=== PATIENT | female | born 1960 | race Caucasian/White ===

== ENCOUNTER 2016-05-30 05:51 | Day surgery (SDC) | payer OTHER ==
[~2016-05-30] VITALS: Ht 165.1 cm; Wt 82.8 kg
[2016-05-30] VITALS (8 sets, daily range): BP systolic 92–115; BP diastolic 44–62; PULSE 62–72; RESP 16–22; O2SAT 91–98
[2016-05-30] MEDS: Lactated Ringer's 1,000 ML IV SCH ×2 (05:50→07:28)
[~2016-05-30 05:51] MED LIST: BENZ56.73 TP; BUPR75TA10 PO; BUSP5TAB3 PO; FLUT9.9S NS; TERB250T11 PO
[2016-05-30] MEDS ORDERED: Bupivacaine Liposome 1.3% 20 mL Inj ONE (07:16)
--- NOTE | 2016-05-30 07:22 | PCM.HPANE ---
Patient Data Surgeon Admitting Provider: Attending Provider:Magaly Dawson MD Primary Care Physician:Marquita Augustin MD Other Provider:Megan Abebeingham Anesthesia Reason for Visit Anal Warts, Anal Skin Tag Ht/WT & BMI Height (Feet): 5 Height (Inches): 5.00 Weight (Kilograms): 82.8 Body Mass Index 30.00 Allergies Coded Allergies: amoxicillin (Verified Allergy, Severe, HIVES, 03/10/15) shellfish derived (Unverified Allergy, Severe, HIVES, 05/24/16) Uncoded Allergies: PEANUTS (Allergy, Severe, HIVES, 05/24/16) Past Anesthesia History Anesthesia History: Positive for:: Anesthesia Reactions (per history-pt "took long time to wake up"), Denies:: Fam Anesthesia Reaction, Malignant Hyperthermia Diabetes History Hx Diabetes?: No MRSA MRSA: No Medications Home Meds Incl Beta Marian: No Reported Medications Bupropion 75 Mg [id number] Mg PO BID Ref 0 05/24/16 Buspirone 5 Mg Tablet5 Mg PO BID Ref 0 05/24/16 Terbinafine 250 Mg [id number] Mg PO DAILY 02/08/15 Fluticasone Propionate (Flonase Allergy Relief)50 Mcg/Actuation [place].susp1-2 Sprays NS DAILY 02/08/15 Benzoyl Peroxide 56.7 Gm Gel..gram.1 Applic TP BID 02/08/15 Discontinued Reported Medications Bupropion ER (Wellbutrin XL)150 Mg Tab.er.[id number] Mg PO DAILY Ref 0 02/08/15 History History of ENT Problems?: Yes HEENT History: Positive for:: Sinus Problem (hx of seasonal allergies) Denies:: Dysphagia Other HEENT Pertinent History: S/P EXC SALIVARY GLAND Hx of Heart Problems?: Yes Cardiovascular History: Positive for:: Hypertension (hyperlipidemia per H+P-, no meds listed on med rec) Denies:: AICD Heart Murmur Pacemaker Valvular Heart Disease Hx of Respiratory Problem?: Yes Respiratory History: Positive for:: Use of C-PAP Machine (SNORES) Hx Neurologic Problems?: No Neurological History: Denies:: CVA Hx of GI Problems?: Yes Gastrointestinal History: Denies:: Gastroesphageal Reflux Rectal Bleeding (HX HEMORRHOIDS,CONDYLOMA ACUMINATA) Other GI Pertinent History: ANAL WARTS/ANAL SKIN TAG=CURRENT PROBLEM Hx of Problems?: No Female Hx: Denies:: Currently (post menses x 12 yrs) Skin History: Positive for:: History Skin Disorders? (HX OF ONYCHOMYCOSIS) Denies:: Pressure Ulcers Hx Musculoskeletal Problems?: Yes Musculoskeletal History: Positive for:: Musculoskeletal Trauma (hx of right shoulder injury 02/2015) Denies:: Back Injury (C/OF LOWER BACK PAIN) Hx of Psycho/Social Problems?: Yes Psycho Social History: Positive for:: Hx Depression Hx Surgeries?: Yes (salivary gland excision) Hx Any Other Health Problems?: Yes Other History: Denies:: Cancer Endocrine Disease Hospitalization Thyroid Disease History Blood Transfusions: Denies:: Blood Transfusions Hx Diabetes: No Hx Alcohol Use: YesHx Substance Use: Yes (occ marijuana) Smoking Status: Former Smoker Have You Smoked inLast 12 mo: Yes (TRYING TO QUIT) Stop/Bang Treated for Sleep Apnea?: No Do You Have a CPAP Machine?: No S-Snoring: Do You Snore Loudly: Yes T-Tired: feel tired, fatigued: No O-Obsered: Observed not breath: No P-Blood Pressure: treated: No B- Body Mass Index > 35 kg/m2: No A- Age over 50: Yes N- Neck Large Circumference: Yes G- Gender Male: No FIONA Total Score: 3 FIONA Risk Assessment: Low Risk, <3 Yes Risk Assessment Category Category 1A: Patient has history of documented sleep apnea, and HAS NOT received any narcotic, sedative or anesthesia administration during this stay. Category 1B: Patient has history of documented sleep apnea, and HAS received any narcotic , sedative or anesthesia administration during this stay Category 2: Patient has SUSPECTED Obstructive Sleep Apnea, and HAS received any narcotic , sedative or anesthesia administration during this stay. Category 3: Patient has SUSPECTED Obstructive Sleep Apnea and HAS NOT received narcotic, sedative or anesthesia administration during this stay. Category 4: Outpatient in Procedural Areas with known sleep apnea or who screen positive for High Risk via the STOP/BANG questionnaire. Exam Exam Vital Signs Vital Signs Date Time Temp Pulse Resp B/P Pulse Ox O2 Delivery O2 Flow Rate FiO2 05/30/16 06:11 36.3 64 16 113/62 98 Room Air General Appearance: Oriented X3 HEENT/AIRWAY: MP 2 Lungs: Normal Air Movement Heart: Regular Rate/Rhythm Meds/Labs/Diagnostics Admission Meds Current Medications Lactated Ringer's (Lr) 1,000 ml @ 120 mls/hr [id number] IV Last administered on t 05:50; Start 05/30/16 at 05:00; Stop 05/30/16 at 13:19 Plan Impression Patient chart reviewed, patient interviewed and anesthestic plan with risks, benefits, and alternatives discussed, and informed consent obtained. NPO Status: 05/29 at 2100 ASA Physical Status: ASA2 Mod Systemic Disease Anesthetic Plan: GA, MAC Bene/Risks/Altern/Consents: Yes HP Complete Prior to Induction: Yes Manish Guzmán MD May 30, 2016 07:22
[2016-05-30] MEDS ORDERED: Bupivacaine 0.5%/EPI 50 mL Inj INFILTRATE ONE (07:34)
[2016-05-30] MEDS ORDERED: Bupivacaine Liposome 1.3% 20 mL Inj INFILTRATE ONE (07:34)
[2016-05-30] MEDS ORDERED: Lactated Ringer's 1,000 ML IV SCH (07:54)
[2016-05-30] MEDS ORDERED: Lactated Ringer's 500 ML IV PRN (07:54)
[2016-05-30] MEDS ORDERED: fentaNYL-PF 50 mCg/mL 2 mL Inj IVPUSH PRN (07:55)
[2016-05-30] MEDS ORDERED: Ondansetron 2 mg/mL 2 mL Inj IVPUSH PRN (07:55)
[2016-05-30] MEDS ORDERED: Dexamethasone 4 mg/mL Inj IVPUSH PRN (07:55)
[2016-05-30] MEDS ORDERED: HYDROmorphone 1 mg/mL Inj IVPUSH PRN (07:55)
[2016-05-30] MEDS ORDERED: Phenylephrine 10,000 mCg/mL Inj IVPUSH PRN (07:55)
[2016-05-30] MEDS ORDERED: MetoCLOpramide 5 mg/mL 2 mL Inj IVPUSH PRN (07:55)
[2016-05-30] MEDS ORDERED: EPHEDrine Sulfate 50 mg/mL Inj IVPUSH PRN (07:55)
[2016-05-30] MEDS ORDERED: oxyCODONE-Acetamin 5-325 mg Tablet PO PRN (08:20)
--- NOTE | 2016-05-30 08:24 | PCM.SURGOP ---
Surgical Operative Report Date of Service: May 30, 2016 Pre Operative Diagnosis External hemorrhoid; perianal warts Post Operative Diagnosis External hemorrhoid; perianal warts Procedure: External hemorrhoidectomy; excision of perianal warts 5 Surgeon and Train Director: Surgeon: Magaly Dawson M.D. Assistants: EVA Herman Indication for Procedure This is a 56-year-old woman who presented with a large anterior external hemorrhoidal skin tag causing difficulty with sanitation, as well as several perianal warts. She desired excision. Findings: External hemorrhoidal skin tag 3 x 2 cm. Perianal warts ranging from 5 mm to 1.5 cm in size. Procedure Details The patient was brought to the operating room and placed in supine position. General anesthesiawas smoothly induced. A warming blanket was placed. A pause was performed to confirm the correct patient, procedure, site, and side. A rectal examination under anesthesia was performed. She had small circumferential internal hemorrhoids, but no masses. The anterior external hemorrhoidal skin tag was grasped and position of the anal sphincter confirmed. The base was injected with 0.5% Marcaine for postoperative analgesia.. It was excised with a knife and the defect was closed with running 3-0 chromic stitch. The perianal region was inspected and she was found to have sized perianal warts, the largest 1.5 cm in size, the smallest 0.5 cm in size. These were removed with electrocautery and sent to pathology as a single specimen. The largest one is at the left anterolateral position, and due to its size, the defect was closed with an interrupted 3-0 chromic stitch.. 20 mL of liposomal bupivacaine was injected into the perianal region and near the location of sutures for postoperative analgesia. Hemostasis was obtained. A dressing was placed, the patient was awakened from anesthesia, and was taken to the postoperative care unit in good condition. Complications There were no periprocedural complications identified. Surgical Specimen Removed: Yes Specimen sent to Pathology: Yes Surgical Specimen description: Anterior external hemorrhoid; perianal warts 5 Anesthetic Plan: GA, MAC Grafts, Implants: None Output, Estimated Blood Loss: 2 (ml) Blood Administration during longoria: No Magaly Dawson MD May 30, 2016 08:24
--- NOTE | 2016-05-30 09:07 | PCM.ANEP2 ---
Post Anesthesia Evaluation ASA/CMS Post Anesthesia VS in Patient's Normal Range?: Yes Resp Stable; Airway Patent?: Yes CV Function & Hydration Stable: Yes Mental Status Recovered?: Yes Pain control Satisfactory?: Yes N/V Control Satisfactory?: Yes Manish Guzmán MD May 30, 2016 09:07
--- NOTE | 2016-05-30 09:07 | PCM.ANEP1 ---
Post Anesthesia Phase 1 PACU Phase 1 Assessment Date of Service: May 30, 2016 Vital Signs Vital Signs Date Time Temp Pulse Resp B/P Pulse Ox O2 Delivery O2 Flow Rate FiO2 05/30/16 08:37 36.3 63 98/44 95 Nasal Cannula 3 05/30/16 08:30 36.0 62 17 92/51 95 Nasal Cannula 3 05/30/16 08:25 64 17 97/47 95 Nasal Cannula 3 05/30/16 08:20 65 17 105/62 93 Nasal Cannula 3 05/30/16 08:15 66 18 109/55 93 Nasal Cannula 3 05/30/16 08:10 36.2 72 22 115/47 91 Room Air 05/30/16 06:11 36.3 64 16 113/62 98 Room Air Anesthetic Administered: GA Level of Alertness: Awake, talking Pain: No Nausea or Vomiting: No Oxygen Delivery: Room Air Lungs: Normal Air Movement Manish Guzmán MD May 30, 2016 09:07
--- NOTE | 2016-05-31 14:05 | PATH ---
SURGICAL PATHOLOGY Attending Physician:Magaly Dawson MD CASE STATUS: Signed Out PATIENT NAME: SAUL KUMAR PID: [id number] : 1960 DATE COLLECTED:05/30/2016 14:58 SPECIMEN: 1: Hemorrhoids 2: Hemorrhoids CLINICAL HISTORY: ANAL SKIN TAG / WARTS 1). ANAL WART 2). ANTERIOR EXTERNAL HEMORRHOID FINAL DIAGNOSIS: 1. Anal Wart: Condyloma acuminatum (AIN 1). No evidence of invasive neoplasm or high-grade dysplasia. 2. Anterior External Hemorrhoid: No evidence of malignancy or dysplasia. ICD10: A63.0 K64 GROSS DESCRIPTION: The specimen is received in two formalin filled containers labeled with the patient's name. 1). The specimen is sublabeled "anal wart" and consists of multiple levine-diego rough friable dome-shaped portions of tissue which aggregate to 0.8 x 0.8 x 0.7 CM. The smallest portions are inked blue and entirely submitted. The largest piece is inked black bisected and entirely submitted in the same cassette. 2). The specimen is sublabeled "anterior external hemorrhoid" and consists of a pink-diego portion of tissue which measures 2.0 x 1.1 x 0.9 CM. The specimen is inked blue. The specimen is sectioned into 4 pieces and entirely submitted in cassette 2A. 05/30/2016 [facility] ICD-9 CODES: CPT CODES: 2: 58967, [id number] Electronically Signed Out Naren Bonilla MD [facility] [address], [place] [address] Technical component performed at [facility], [address], [place], [address]
== END 2016-05-30 23:59 | disposition home or self-care (01) ==
LOC: SAS 05:51
PROVIDERS: ATTEND Surgery
DX: K64.4 Residual hemorrhoidal skin tags (principal); A63.0 Anogenital (venereal) warts; J30.2 Other seasonal allergic rhinitis; E78.5 Hyperlipidemia, unspecified; F32.9 Major depressive disorder, single episode, unspecified; F12.90 Cannabis use, unspecified, uncomplicated; F17.210 Nicotine dependence, cigarettes, uncomplicated; Z80.0 Family history of malignant neoplasm of digestive organs
CPT/HCPCS: 46220; 88304; 88305; J7120